=== PATIENT | male | born 1960 | race Two or more races ===

== ENCOUNTER 2023-03-06 09:10 | Emergency (ER) | payer OTHER ==
[2023-03-06 09:46] VITALS: BP 135/85; PULSE 96; RESP 18; TEMP 97.8; BMI 25.8
[2023-03-06] MEDS ORDERED: DOXYCYCLINE HYCLATE 100 MG CAPSULE PO ONE ×2 (10:15→10:16)
== END 2023-03-06 10:31 | disposition home or self-care (01) ==
LOC: JER 09:10 → JERFT 09:10
DX: S80.862A Insect bite (nonvenomous), left lower leg, initial encounter (principal); W57.XXXA Bitten or stung by nonvenomous insect and other nonvenomous arthropods, initial encounter; Y92.9 Unspecified place or not applicable
CPT/HCPCS: 99283-25